=== PATIENT | male | born 1960 | race Caucasian/White ===

== ENCOUNTER 2016-05-29 03:01 | Emergency (ER) | payer OTHER ==
[~2016-05-29] VITALS: Ht 175.3 cm; Wt 88.6 kg
[~2016-05-29 03:01] MED LIST: AMLO-512 PO; CIPR-278 PO; TAMS0.4C32 PO
[2016-05-29 04:05] LABS: ADD UA MICROSCOPIC YES; APPEARANCE,URINE CLEAR (CLEAR); GLUCOSE, URINE (UA) NEGATIVE (NEGATIVE); KETONES,URINE NEGATIVE (NEGATIVE); LEUKOCYTE ESTERASE ,URINE MODERATE (NEGATIVE); OCCULT BLOOD,URINE LARGE (NEGATIVE); PH,URINE 5.5 (5.0-8.0); PROTEIN,URINE NEGATIVE (NEGATIVE)
[2016-05-29 04:16] LABS: SQUAMOUS EPITHELIAL CELL,UR Few /LPF (None Seen)
[2016-05-29 04:28] VITALS: BP 155/89
== END 2016-05-29 05:04 | disposition home or self-care (01) ==
LOC: EMS 03:03
DX: T83.098A Other mechanical complication of other urinary catheter, initial encounter (principal); N40.0 Benign prostatic hyperplasia without lower urinary tract symptoms; I10 Essential (primary) hypertension; J44.9 Chronic obstructive pulmonary disease, unspecified; F12.90 Cannabis use, unspecified, uncomplicated; F15.90 Other stimulant use, unspecified, uncomplicated; F17.210 Nicotine dependence, cigarettes, uncomplicated
CPT/HCPCS: 51702; 87086; 99284

== ENCOUNTER 2016-06-03 09:26 | Emergency (ER) | payer OTHER ==
[~2016-06-03] VITALS: Ht 175.3 cm; Wt 92.0 kg
[2016-06-03] MEDS ORDERED: IPRA4AER IH (09:30)
[2016-06-03 09:32] VITALS: BP 181/136
[2016-06-03] MEDS ORDERED: ALBUTEROL SULFATE 2.5 MG/0.5 ML NEB SOLUTION NEB ONE (10:30)
[2016-06-03] MEDS ORDERED: ALBUTEROL SULFATE HFA 90 MCG/PUFF 8 GM INHALER IH ONE (10:30)
[2016-06-03] MEDS ORDERED: IPRATROPIUM BROMIDE 0.5 MG/2.5 ML NEB SOLUTION NEB ONE (10:30)
== END 2016-06-03 11:15 | disposition home or self-care (01) ==
LOC: EMS 09:28
DX: J44.1 Chronic obstructive pulmonary disease with (acute) exacerbation (principal); J45.901 Unspecified asthma with (acute) exacerbation; I10 Essential (primary) hypertension; F17.210 Nicotine dependence, cigarettes, uncomplicated; F12.90 Cannabis use, unspecified, uncomplicated; F19.90 Other psychoactive substance use, unspecified, uncomplicated
CPT/HCPCS: 94640; 99284; 99406; J7613; 99283; J3535

== ENCOUNTER 2016-07-04 12:12 | Emergency (ER) | payer OTHER ==
[~2016-07-04] VITALS: Ht 175.3 cm; Wt 85.0 kg
[~2016-07-04 12:12] MED LIST changes: -CIPR-278 PO; +IPRA4AER IH
[2016-07-04] MEDS ORDERED: ACET-2247 PO (12:36)
[2016-07-04] MEDS ORDERED: HYDROCODONE/ACETAMINOPHEN 5-325 MG TABLET PO ONE (13:00)
[2016-07-04 14:03] LABS: APPEARANCE,URINE CLEAR (CLEAR); GLUCOSE, URINE (UA) NEGATIVE (NEGATIVE); KETONES,URINE NEGATIVE (NEGATIVE); LEUKOCYTE ESTERASE ,URINE SMALL (NEGATIVE); OCCULT BLOOD,URINE TRACE (NEGATIVE); PH,URINE 6.5 (5.0-8.0); PROTEIN,URINE NEGATIVE (NEGATIVE)
[2016-07-04 14:15] LABS: RBC,URINE 0-2 /HPF (0-2)
[2016-07-04 14:18] VITALS: BP 156/93
== END 2016-07-04 14:37 | disposition home or self-care (01) ==
LOC: EMS 12:13
DX: K40.90 Unilateral inguinal hernia, without obstruction or gangrene, not specified as recurrent (principal); I10 Essential (primary) hypertension; J44.9 Chronic obstructive pulmonary disease, unspecified; F17.210 Nicotine dependence, cigarettes, uncomplicated; F12.90 Cannabis use, unspecified, uncomplicated; F15.90 Other stimulant use, unspecified, uncomplicated
CPT/HCPCS: 99283

== ENCOUNTER 2016-09-01 07:42 | Emergency (ER) | payer OTHER ==
[~2016-09-01] VITALS: Ht 167.6 cm; Wt 90.0 kg
[~2016-09-01 07:42] MED LIST changes: +ACET-2247 PO
[2016-09-01] MEDS ORDERED: IPRATROPIUM BROMIDE 0.5 MG/2.5 ML NEB SOLUTION NEB ONE ×2 (07:45→08:15)
[2016-09-01] MEDS ORDERED: ALBUTEROL SULFATE 2.5 MG/0.5 ML NEB SOLUTION NEB ONE (07:45)
[2016-09-01] MEDS ORDERED: 0.9% SODIUM CHLORIDE 5 ML NEB SOLUTION NEB ONE ×2 (08:01→08:04)
[2016-09-01] MEDS ORDERED: ALBUTEROL SULFATE 5 MG/ML 20 ML NEB SOLN [BULK] NEB ONE (08:15)
[2016-09-01] MEDS ORDERED: PredniSONE 20 MG TABLET PO ONE (08:15)
[2016-09-01] MEDS ORDERED: ALBUTEROL SULFATE HFA 90 MCG/PUFF 8 GM INHALER IH ONE (08:45)
[2016-09-01 09:21] VITALS: BP 156/100
[2016-09-01] MEDS ORDERED: BECLOMETHASONE DIPR 80 MCG/PUFF 8.7 GM INHALER IH ONE (09:30)
== END 2016-09-01 11:26 | disposition home or self-care (01) ==
LOC: EMS 07:45
DX: J44.9 Chronic obstructive pulmonary disease, unspecified (principal); I10 Essential (primary) hypertension; F12.90 Cannabis use, unspecified, uncomplicated; F15.90 Other stimulant use, unspecified, uncomplicated; F17.210 Nicotine dependence, cigarettes, uncomplicated
CPT/HCPCS: 94644; 99285; J7512; J7611; J3535

== ENCOUNTER 2016-10-18 11:50 | Emergency (ER) | payer OTHER ==
[~2016-10-18] VITALS: Ht 175.3 cm; Wt 88.6 kg
[2016-10-18 12:44] LABS: APPEARANCE,URINE TURBID (CLEAR); GLUCOSE, URINE (UA) NEGATIVE (NEGATIVE); KETONES,URINE NEGATIVE (NEGATIVE); LEUKOCYTE ESTERASE ,URINE LARGE (NEGATIVE); OCCULT BLOOD,URINE LARGE (NEGATIVE); PH,URINE 8.5 (5.0-8.0); PROTEIN,URINE POS 1+ (NEGATIVE)
[2016-10-18 12:45] LABS: ADD UA MICROSCOPIC YES
[2016-10-18 12:49] LABS: RBC,URINE 26-50 /HPF (0-2)
[2016-10-18 12:50] LABS: AMORPHOUS SEDIMENT,UR Few /LPF (None Seen); SQUAMOUS EPITHELIAL CELL,UR Rare /LPF (None Seen); WBC,URINE 26-50 /HPF (0-5)
[2016-10-18] MEDS ORDERED: CefTRIAXone SODIUM 1 GM/VIAL IM ONE (13:00)
[2016-10-18] MEDS ORDERED: LIDOCAINE HCL/PF 1% 2 ML VIAL IM ONE (13:00)
[2016-10-18 13:30] VITALS: BP 134/91
== END 2016-10-18 13:35 | disposition home or self-care (01) ==
LOC: EMS 11:52
DX: R33.9 Retention of urine, unspecified (principal); N39.0 Urinary tract infection, site not specified; I10 Essential (primary) hypertension; J44.9 Chronic obstructive pulmonary disease, unspecified; F12.90 Cannabis use, unspecified, uncomplicated; F15.90 Other stimulant use, unspecified, uncomplicated; F17.210 Nicotine dependence, cigarettes, uncomplicated
CPT/HCPCS: 51702; 81001; 87077; 87086; 87186; 96372; 99284; 99406; J0696; J3490

== ENCOUNTER 2016-11-02 09:01 | Emergency (ER) | payer OTHER ==
[~2016-11-02] VITALS: Ht 175.3 cm; Wt 88.6 kg
[2016-11-02] MEDS ORDERED: ALBUTEROL SULFATE HFA 90 MCG/PUFF 8 GM INHALER IH ONE ×2 (09:15→13:00)
[2016-11-02 12:54] VITALS: BP 148/78
== END 2016-11-02 12:56 | disposition home or self-care (01) ==
LOC: EMS 09:03
DX: J45.909 Unspecified asthma, uncomplicated (principal); F17.210 Nicotine dependence, cigarettes, uncomplicated; J44.9 Chronic obstructive pulmonary disease, unspecified; I10 Essential (primary) hypertension; F12.90 Cannabis use, unspecified, uncomplicated; F19.90 Other psychoactive substance use, unspecified, uncomplicated
CPT/HCPCS: 94640; 99284; 99406; J3535

== ENCOUNTER 2016-11-24 16:09 | Emergency (ER) | payer OTHER ==
[~2016-11-24] VITALS: Ht 175.3 cm; Wt 88.6 kg
[2016-11-24] MEDS ORDERED: ALBUTEROL SULFATE 2.5 MG/0.5 ML NEB SOLUTION NEB ONE (16:30)
[2016-11-24] MEDS ORDERED: IPRATROPIUM BROMIDE 0.5 MG/2.5 ML NEB SOLUTION NEB ONE (16:30)
[2016-11-24 17:56] VITALS: BP 142/90
== END 2016-11-24 17:58 | disposition home or self-care (01) ==
LOC: EMS 16:12
DX: J44.9 Chronic obstructive pulmonary disease, unspecified (principal); I10 Essential (primary) hypertension; F12.90 Cannabis use, unspecified, uncomplicated; F15.90 Other stimulant use, unspecified, uncomplicated; F17.210 Nicotine dependence, cigarettes, uncomplicated; Z76.0 Encounter for issue of repeat prescription
CPT/HCPCS: 71010; 94640; 99283; J7613

== ENCOUNTER 2017-01-08 11:34 | Emergency (ER) | payer OTHER ==
[~2017-01-08] VITALS: Ht 175.3 cm; Wt 88.6 kg
[2017-01-08] MEDS ORDERED: BLOOD PRESSURE PO (11:49)
[2017-01-08] MEDS ORDERED: BPH PO (11:49)
[2017-01-08 13:10] VITALS: BP 144/91
== END 2017-01-08 13:05 | disposition home or self-care (01) ==
LOC: EMS 11:36
DX: T83.011A Breakdown (mechanical) of indwelling urethral catheter, initial encounter (principal); R33.8 Other retention of urine; J44.9 Chronic obstructive pulmonary disease, unspecified; I10 Essential (primary) hypertension; N40.1 Benign prostatic hyperplasia with lower urinary tract symptoms; F12.10 Cannabis abuse, uncomplicated; F15.10 Other stimulant abuse, uncomplicated; F17.210 Nicotine dependence, cigarettes, uncomplicated; Y92.89 Other specified places as the place of occurrence of the external cause
CPT/HCPCS: 51702; 99284

== ENCOUNTER 2017-03-04 07:02 | Emergency (ER) | payer OTHER ==
[~2017-03-04] VITALS: Ht 175.3 cm; Wt 89.0 kg
[~2017-03-04 07:02] MED LIST changes: -AMLO-512 PO; +BLOOD PRESSURE PO; +BPH PO; -TAMS0.4C32 PO
[2017-03-04 07:21] VITALS: BP 140/105
[2017-03-04] MEDS ORDERED: 0.9% SODIUM CHLORIDE 5 ML NEB SOLUTION NEB ONE (07:42)
[2017-03-04] MEDS ORDERED: PredniSONE 20 MG TABLET PO ONE (07:45)
[2017-03-04] MEDS ORDERED: ALBUTEROL SULFATE 5 MG/ML 20 ML NEB SOLN [BULK] NEB ONE (07:45)
[2017-03-04] MEDS ORDERED: IPRATROPIUM BROMIDE 0.5 MG/2.5 ML NEB SOLUTION NEB ONE (07:45)
== END 2017-03-04 08:35 | disposition home or self-care (01) ==
LOC: EMS 07:03
DX: J44.1 Chronic obstructive pulmonary disease with (acute) exacerbation (principal); J45.901 Unspecified asthma with (acute) exacerbation; F17.210 Nicotine dependence, cigarettes, uncomplicated; I10 Essential (primary) hypertension; F12.90 Cannabis use, unspecified, uncomplicated; F19.90 Other psychoactive substance use, unspecified, uncomplicated
CPT/HCPCS: 94640; 99283; 99406; J7512; J7611

== ENCOUNTER 2017-03-28 04:00 | Emergency (ER) | payer OTHER ==
[~2017-03-28] VITALS: Ht 175.3 cm; Wt 89.0 kg
[~2017-03-28 04:00] MED LIST changes: -ACET-2247 PO
[2017-03-28 05:40] LABS: APPEARANCE,URINE CLOUDY (CLEAR); GLUCOSE, URINE (UA) NEGATIVE (NEGATIVE); KETONES,URINE NEGATIVE (NEGATIVE); LEUKOCYTE ESTERASE ,URINE LARGE (NEGATIVE); OCCULT BLOOD,URINE SMALL (NEGATIVE); PH,URINE 7.5 (5.0-8.0); PROTEIN,URINE NEGATIVE (NEGATIVE)
[2017-03-28 05:46] LABS: ADD UA MICROSCOPIC YES
[2017-03-28 05:55] LABS: SQUAMOUS EPITHELIAL CELL,UR Few /LPF (None Seen)
[2017-03-28] MEDS ORDERED: CIPROFLOXACIN HCL 250 MG TABLET PO ONE (06:00)
[2017-03-28 06:19] VITALS: BP 124/75
== END 2017-03-28 06:19 | disposition home or self-care (01) ==
LOC: EMS 04:01
DX: T83.091A Other mechanical complication of indwelling urethral catheter, initial encounter (principal); N39.0 Urinary tract infection, site not specified; N40.1 Benign prostatic hyperplasia with lower urinary tract symptoms; J44.9 Chronic obstructive pulmonary disease, unspecified; I10 Essential (primary) hypertension; F12.90 Cannabis use, unspecified, uncomplicated; F19.90 Other psychoactive substance use, unspecified, uncomplicated; F17.210 Nicotine dependence, cigarettes, uncomplicated
CPT/HCPCS: 51702; 87086; 99284

== ENCOUNTER 2017-04-07 12:04 | Emergency (ER) | payer OTHER ==
[~2017-04-07] VITALS: Ht 175.3 cm; Wt 88.6 kg
[2017-04-07] MEDS ORDERED: IPRATROPIUM BROMIDE 0.5 MG/2.5 ML NEB SOLUTION NEB ONE (13:00)
[2017-04-07] MEDS ORDERED: DEXAMETHASONE SOD PHOS 4 MG/ML 5 ML VIAL IM ONE (13:00)
[2017-04-07] MEDS ORDERED: ALBUTEROL SULFATE 2.5 MG/0.5 ML NEB SOLUTION NEB ONE (13:00)
[2017-04-07 13:49] VITALS: BP 143/89
[2017-04-07] MEDS ORDERED: ALBUTEROL SULFATE HFA 90 MCG/PUFF 8 GM INHALER IH ONE (14:15)
== END 2017-04-07 14:49 | disposition home or self-care (01) ==
LOC: EMS 12:05
DX: J44.1 Chronic obstructive pulmonary disease with (acute) exacerbation (principal); I10 Essential (primary) hypertension; F12.90 Cannabis use, unspecified, uncomplicated; F15.90 Other stimulant use, unspecified, uncomplicated; F17.210 Nicotine dependence, cigarettes, uncomplicated
CPT/HCPCS: 94644; 96372; 99285; J1100; J7613; J3535

== ENCOUNTER 2017-04-26 17:44 | Emergency (ER) | payer OTHER ==
[~2017-04-26] VITALS: Ht 175.3 cm; Wt 90.9 kg
[2017-04-26 17:48] VITALS: BP 155/93
[2017-04-26] MEDS ORDERED: ALBUTEROL SULFATE 2.5 MG/0.5 ML NEB SOLUTION NEB ONE (18:30)
[2017-04-26] MEDS ORDERED: IPRATROPIUM BROMIDE 0.5 MG/2.5 ML NEB SOLUTION NEB ONE (18:30)
[2017-04-26] MEDS ORDERED: ALBUTEROL SULFATE HFA 90 MCG/PUFF 8 GM INHALER IH ONE (18:30)
== END 2017-04-26 19:36 | disposition home or self-care (01) ==
LOC: EMS 17:45
DX: J44.9 Chronic obstructive pulmonary disease, unspecified (principal); I10 Essential (primary) hypertension; F17.210 Nicotine dependence, cigarettes, uncomplicated; F12.10 Cannabis abuse, uncomplicated; F15.10 Other stimulant abuse, uncomplicated
CPT/HCPCS: 94640; 99283; J3535

== ENCOUNTER 2017-05-06 11:09 | Emergency (ER) | payer OTHER ==
[~2017-05-06] VITALS: Ht 175.3 cm; Wt 90.9 kg
[2017-05-06 14:47] VITALS: BP 136/107
== END 2017-05-06 15:28 | disposition left against medical advice (07) ==
LOC: EMS 11:10
DX: T83.031A Leakage of indwelling urethral catheter, initial encounter (principal); K41.90 Unilateral femoral hernia, without obstruction or gangrene, not specified as recurrent; J44.9 Chronic obstructive pulmonary disease, unspecified; I10 Essential (primary) hypertension; F12.90 Cannabis use, unspecified, uncomplicated; F15.90 Other stimulant use, unspecified, uncomplicated; F17.210 Nicotine dependence, cigarettes, uncomplicated
CPT/HCPCS: 99283

== ENCOUNTER 2017-05-09 13:01 | Emergency (ER) | payer OTHER ==
[~2017-05-09] VITALS: Ht 175.3 cm; Wt 90.9 kg
[2017-05-09 13:15] VITALS: BP 148/122
[2017-05-09 14:54] LABS: BASOPHILS % (AUTO) 0.5 % (0.0-2.0); EOSINOPHILS % (AUTO) 4.3 % (1.0-6.0); HEMATOCRIT 46.1 % (41-53); HEMOGLOBIN 15.5 g/dL (13.5-17.5); LYMPHOCYTES % (AUTO) 20.4 % (22.0-44.0); MEAN CORPUSCULAR HEMOGLOBIN 29.7 pg (26.0-34.0); MEAN CORPUSCULAR HGB CONC 33.7 G/dL (31.0-37.0); MEAN CORPUSCULAR VOLUME 88 fL (80-100); MONOCYTES # (AUTO) 0.8 K/uL (0.1-1.0); MONOCYTES % (AUTO) 7.8 % (2.0-9.0); NEUTROPHILS # (AUTO) 6.7 K/uL (1.8-7.7); PLATELET COUNT (AUTO) 364 K/uL (150-450); RED BLOOD CELL COUNT(AUTO) 5.22 MIL/uL (4.50-5.90); RED CELL DISTRIBUTION WIDTH 15.8 % (11.5-14.5)
[2017-05-09 15:11] LABS: CALCIUM, TOTAL 8.6 mg/dL (8.8-10.5); CREATININE 1.63 mg/dL (0.60-1.30); POTASSIUM 4.5 mmol/L (3.5-5.1)
[2017-05-09] MEDS ORDERED: IPRATROPIUM BROMIDE 0.5 MG/2.5 ML NEB SOLUTION NEB ONE (15:15)
[2017-05-09] MEDS ORDERED: ALBUTEROL SULFATE 2.5 MG/0.5 ML NEB SOLUTION NEB ONE (15:15)
[2017-05-09] MEDS ORDERED: ALBUTEROL SULFATE HFA 90 MCG/PUFF 8 GM INHALER IH ONE (15:15)
[2017-05-09 15:17] LABS: ALBUMIN 3.9 g/dL (3.4-5.0); BILIRUBIN,TOTAL 0.4 mg/dL (0.1-1.0)
== END 2017-05-09 16:09 | disposition left against medical advice (07) ==
LOC: EMS 13:02
DX: R06.02 Shortness of breath (principal); Z53.21 Procedure and treatment not carried out due to patient leaving prior to being seen by health care provider
CPT/HCPCS: 36415; 71045; 80053; 84484; 85025; 93005; J7613; J3535

== ENCOUNTER 2017-06-15 05:08 | Emergency (ER) | payer OTHER ==
[~2017-06-15] VITALS: Ht 175.3 cm; Wt 86.4 kg
[2017-06-15 06:38] VITALS: BP 127/81
== END 2017-06-15 06:52 | disposition home or self-care (01) ==
LOC: EMS 05:09
DX: N39.0 Urinary tract infection, site not specified (principal); J44.9 Chronic obstructive pulmonary disease, unspecified; I10 Essential (primary) hypertension; F17.210 Nicotine dependence, cigarettes, uncomplicated; F12.90 Cannabis use, unspecified, uncomplicated; F19.90 Other psychoactive substance use, unspecified, uncomplicated
CPT/HCPCS: 51705; 99284

== ENCOUNTER 2017-08-17 11:49 | Emergency (ER) | payer OTHER ==
[~2017-08-17] VITALS: Ht 175.3 cm; Wt 95.5 kg
[2017-08-17 12:11] VITALS: BP 158/78
== END 2017-08-17 12:20 | disposition left against medical advice (07) ==
LOC: EMS 11:50
DX: R07.9 Chest pain, unspecified (principal); Z53.21 Procedure and treatment not carried out due to patient leaving prior to being seen by health care provider
CPT/HCPCS: 93005

== ENCOUNTER 2017-09-25 22:43 | Emergency (ER) | payer OTHER ==
[~2017-09-25] VITALS: Ht 175.3 cm; Wt 90.9 kg
[2017-09-25 23:22] LABS: APPEARANCE,URINE CLEAR (CLEAR); BILIRUBIN,URINE NEGATIVE (NEGATIVE); GLUCOSE, URINE (UA) NEGATIVE (NEGATIVE); KETONES,URINE NEGATIVE (NEGATIVE); LEUKOCYTE ESTERASE ,URINE LARGE (NEGATIVE); NITRATE,URINE POSITIVE (NEGATIVE); OCCULT BLOOD,URINE LARGE (NEGATIVE); PH,URINE 6.5 (5.0-8.0); PROTEIN,URINE NEGATIVE (NEGATIVE); UROBILINOGEN,URINE 0.2 mg/dL (<=1.0)
[2017-09-25 23:44] LABS: RBC,URINE 26-50 /HPF (0-2)
[2017-09-25 23:45] LABS: AMORPHOUS SEDIMENT,UR Few /LPF (None Seen); BACTERIA,URINE Moderate /HPF (None Seen); SQUAMOUS EPITHELIAL CELL,UR Rare /LPF (None Seen)
[2017-09-26 01:07] VITALS: BP 132/72
== END 2017-09-26 01:08 | disposition home or self-care (01) ==
LOC: EMS 22:44
DX: T83.011A Breakdown (mechanical) of indwelling urethral catheter, initial encounter (principal); N39.0 Urinary tract infection, site not specified; R33.9 Retention of urine, unspecified; J44.9 Chronic obstructive pulmonary disease, unspecified; I10 Essential (primary) hypertension; F17.210 Nicotine dependence, cigarettes, uncomplicated
CPT/HCPCS: 51702; 87086; 99284; 99406

== ENCOUNTER 2018-10-18 09:38 | Emergency (ER) | payer OTHER ==
[~2018-10-18] VITALS: Ht 175.3 cm; Wt 119.1 kg
[2018-10-18] MEDS ORDERED: KETOROLAC TROMETHAMINE 60 MG/2 ML VIAL IM ONE (10:45)
[2018-10-18 12:34] VITALS: BP 148/91
== END 2018-10-18 12:37 | disposition home or self-care (01) ==
LOC: EMS 09:41
DX: S83.92XA Sprain of unspecified site of left knee, initial encounter (principal); J44.9 Chronic obstructive pulmonary disease, unspecified; I10 Essential (primary) hypertension; F17.210 Nicotine dependence, cigarettes, uncomplicated; F12.90 Cannabis use, unspecified, uncomplicated; F19.90 Other psychoactive substance use, unspecified, uncomplicated
CPT/HCPCS: 73562; 96372; 99283; J1885

== ENCOUNTER 2019-09-21 00:23 | Emergency (ER) | payer OTHER ==
[~2019-09-21] VITALS: Ht 175.3 cm; Wt 122.7 kg
[2019-09-21] MEDS ORDERED: ACETAMINOPHEN 500 MG TABLET PO ONE (01:15)
[2019-09-21] MEDS ORDERED: CLINDAMYCIN HCL 150 MG CAPSULE PO ONE (01:15)
[2019-09-21 01:23] VITALS: BP 148/69
== END 2019-09-21 01:32 | disposition home or self-care (01) ==
LOC: EMS 00:23
DX: K02.9 Dental caries, unspecified (principal); F17.210 Nicotine dependence, cigarettes, uncomplicated; F12.90 Cannabis use, unspecified, uncomplicated; F15.90 Other stimulant use, unspecified, uncomplicated; J44.9 Chronic obstructive pulmonary disease, unspecified

== ENCOUNTER 2021-02-20 10:22 | Emergency (ER) | payer OTHER ==
[~2021-02-20] VITALS: Ht 175.3 cm; Wt 109.1 kg
[~2021-02-20 10:22] MED LIST changes: -BLOOD PRESSURE PO; -BPH PO
[2021-02-20] MEDS ORDERED: IPRATROPIUM BROMIDE 0.5 MG/2.5 ML NEB SOLUTION NEB ONE ×2 (11:00→12:15)
[2021-02-20] MEDS ORDERED: MethylPREDNISolone SOD SUCC 125 MG/2 ML VIAL IVP ONE (11:00)
[2021-02-20] MEDS ORDERED: ALBUTEROL SULFATE 2.5 MG/0.5 ML NEB SOLUTION NEB ONE ×2 (11:00→12:15)
[2021-02-20 11:12] LABS: BASOPHILS % (AUTO) 0.9 % (0.0-2.0); HEMATOCRIT 46.9 % (41-53); HEMOGLOBIN 15.5 g/dL (13.5-17.5); LYMPHOCYTES # (AUTO) 1.5 K/uL (1.0-4.8); LYMPHOCYTES % (AUTO) 13.8 % (22.0-44.0); MEAN CORPUSCULAR HEMOGLOBIN 28.3 pg (26.0-34.0); MEAN CORPUSCULAR HGB CONC 33.1 G/dL (31.0-37.0); MEAN CORPUSCULAR VOLUME 86 fL (80-100); MONOCYTES # (AUTO) 1.1 K/uL (0.1-1.0); MONOCYTES % (AUTO) 9.7 % (2.0-9.0); NEUTROPHILS # (AUTO) 8.1 K/uL (1.8-7.7); NEUTROPHILS % (AUTO) 72.6 % (40.0-70.0); PLATELET COUNT (AUTO) 355 K/uL (150-450); RED BLOOD CELL COUNT(AUTO) 5.48 MIL/uL (4.50-5.90)
[2021-02-20 11:24] LABS: ANION GAP 12 mmol/L (8-16); CALCIUM, TOTAL 9.8 mg/dL (8.8-10.5); CARBON DIOXIDE 30 mmol/L (22-29); CHLORIDE 95 mmol/L (98-107); GLOMERULAR FILTR. RATE CALC 36 mL/min (>60); GLUCOSE,RANDOM 133 mg/dL (70-110); SODIUM SERUM 137 mmol/L (136-145); UREA NITROGEN, BLOOD 33 mg/dL (7-18)
[2021-02-20 11:36] LABS: ALANINE AMINOTRANSFERASE 36 U/L (12-78); ALBUMIN 3.8 g/dL (3.4-5.0); ALKALINE PHOSPHATASE 84 U/L (46-116); ASPARTATE AMINOTRANSFERASE 33 U/L (15-37); BILIRUBIN,TOTAL 0.4 mg/dL (0.1-1.0); TOTAL PROTEIN, SERUM 8.4 g/dL (6.4-8.2)
[2021-02-20] MEDS ORDERED: POTASSIUM CHLORIDE 10% 40 MEQ/30 ML LIQUID UDCUP PO ONE (12:00)
[2021-02-20] MEDS ORDERED: ACETAMINOPHEN 500 MG TABLET PO ONE (12:15)
[2021-02-20] MEDS ORDERED: DOXYCYCLINE HYCLATE 100 MG TABLET PO ONE (12:15)
[2021-02-20 12:58] VITALS: BP 139/93
== END 2021-02-20 12:59 | disposition home or self-care (01) ==
LOC: EMS 10:23
DX: J18.9 Pneumonia, unspecified organism (principal); E87.6 Hypokalemia; J44.1 Chronic obstructive pulmonary disease with (acute) exacerbation; R07.89 Other chest pain; F12.90 Cannabis use, unspecified, uncomplicated; F15.90 Other stimulant use, unspecified, uncomplicated; N40.0 Benign prostatic hyperplasia without lower urinary tract symptoms; Z59.00 Homelessness unspecified
CPT/HCPCS: 36415; 71045; 80053; 84484; 85025; 93005; 94640; 99285; G0480; J2930; J7613

== ENCOUNTER 2021-03-05 10:25 | Emergency (ER) | payer OTHER ==
[~2021-03-05] VITALS: Ht 175.3 cm; Wt 109.1 kg
[2021-03-05 10:37] VITALS: BP 128/89
[2021-03-05] MEDS: CYCLOBENZAPRINE HCL 10 MG TABLET PO ONE (11:33)
[2021-03-05] MEDS: HYDROCODONE/ACETAMINOPHEN 5-325 MG TABLET PO ONE (11:34)
== END 2021-03-05 12:33 | disposition home or self-care (01) ==
LOC: EMS 10:35
DX: S46.911A Strain of unspecified muscle, fascia and tendon at shoulder and upper arm level, right arm, initial encounter (principal); X58.XXXA Exposure to other specified factors, initial encounter; Y93.84 Activity, sleeping; Y92.810 Car as the place of occurrence of the external cause; Y99.8 Other external cause status; J44.9 Chronic obstructive pulmonary disease, unspecified; I10 Essential (primary) hypertension; N40.0 Benign prostatic hyperplasia without lower urinary tract symptoms; Z59.00 Homelessness unspecified
CPT/HCPCS: 99283

== ENCOUNTER 2021-03-14 10:38 | Emergency (ER) | payer OTHER ==
[~2021-03-14] VITALS: Ht 175.3 cm; Wt 113.6 kg
[2021-03-14 10:57] VITALS: BP 133/96
[2021-03-14] MEDS: CYCLOBENZAPRINE HCL 10 MG TABLET PO ONE ×2 (11:06→11:16)
[2021-03-14] MEDS: HYDROCODONE/ACETAMINOPHEN 5-325 MG TABLET PO ONE ×2 (11:07→11:16)
== END 2021-03-14 11:21 | disposition home or self-care (01) ==
LOC: EMS 10:38
DX: M62.838 Other muscle spasm (principal); M54.2 Cervicalgia; M25.511 Pain in right shoulder; R20.0 Anesthesia of skin; J44.9 Chronic obstructive pulmonary disease, unspecified; I10 Essential (primary) hypertension; F12.90 Cannabis use, unspecified, uncomplicated
CPT/HCPCS: 99283

== ENCOUNTER 2021-03-26 14:58 | Emergency (ER) | payer OTHER ==
[~2021-03-26] VITALS: Ht 177.8 cm; Wt 113.6 kg
[2021-03-26 16:54] LABS: COVID AG,FIA SOURCE NASAL SWAB
[2021-03-26] MEDS ORDERED: IPRATROPIUM BROMIDE 0.5 MG/2.5 ML NEB SOLUTION NEB ONE (17:30)
[2021-03-26] MEDS ORDERED: PredniSONE 20 MG TABLET PO ONE (17:30)
[2021-03-26] MEDS ORDERED: ALBUTEROL SULFATE 5 MG/ML 20 ML NEB SOLN [BULK] NEB ONE (17:30)
[2021-03-26 18:47] VITALS: BP 132/78
== END 2021-03-26 19:00 | disposition home or self-care (01) ==
LOC: EMS 15:06
DX: J44.1 Chronic obstructive pulmonary disease with (acute) exacerbation (principal); I10 Essential (primary) hypertension; Z79.899 Other long term (current) drug therapy; F12.90 Cannabis use, unspecified, uncomplicated; Z20.822 Contact with and (suspected) exposure to COVID-19
CPT/HCPCS: 71045; 87426; 93005; 94640; 99285; J7512

== ENCOUNTER 2022-07-07 10:17 | Emergency (ER) | payer OTHER ==
[~2022-07-07] VITALS: Ht 175.3 cm; Wt 125.0 kg
[2022-07-07 12:00] VITALS: BP 144/78
== END 2022-07-07 13:45 | disposition left against medical advice (07) ==
LOC: EMS 10:21
DX: Z46.6 Encounter for fitting and adjustment of urinary device (principal); J44.9 Chronic obstructive pulmonary disease, unspecified; I10 Essential (primary) hypertension; F12.90 Cannabis use, unspecified, uncomplicated; N40.0 Benign prostatic hyperplasia without lower urinary tract symptoms; Z98.890 Other specified postprocedural states
CPT/HCPCS: 99281; Z7502

== ENCOUNTER 2022-08-09 10:13 | Emergency (ER) | payer OTHER ==
[~2022-08-09] VITALS: Ht 175.3 cm; Wt 125.0 kg
[2022-08-09 11:31] LABS: BASOPHILS % (AUTO) 0.6 % (0.0-2.0); EOSINOPHILS % (AUTO) 1.3 % (1.0-6.0); HEMATOCRIT 43.6 % (41-53); HEMOGLOBIN 14.4 g/dL (13.5-17.5); LYMPHOCYTES # (AUTO) 1.2 K/uL (1.0-4.8); LYMPHOCYTES % (AUTO) 15.6 % (22.0-44.0); MEAN CORPUSCULAR HEMOGLOBIN 28.2 pg (26.0-34.0); MEAN CORPUSCULAR VOLUME 86 fL (80-100); MONOCYTES # (AUTO) 1.2 K/uL (0.1-1.0); MONOCYTES % (AUTO) 15.8 % (2.0-9.0); NEUTROPHILS # (AUTO) 5.1 K/uL (1.8-7.7); NEUTROPHILS % (AUTO) 66.7 % (40.0-70.0); PLATELET COUNT (AUTO) 269 K/uL (150-450); RED CELL DISTRIBUTION WIDTH 16.7 % (11.5-14.5)
[2022-08-09 11:39] LABS: CALCIUM, TOTAL 9.4 mg/dL (8.8-10.5); CREATININE 1.32 mg/dL (0.60-1.30); POTASSIUM 3.9 mmol/L (3.5-5.1)
[2022-08-09 11:45] LABS: ALBUMIN 3.3 g/dL (3.4-5.0); BILIRUBIN,TOTAL 0.3 mg/dL (0.1-1.0); TOTAL PROTEIN, SERUM 7.6 g/dL (6.4-8.2)
[2022-08-09] MEDS ORDERED: IPRATROPIUM BROMIDE 0.5 MG/2.5 ML NEB SOLUTION NEB ONE (12:00)
[2022-08-09] MEDS ORDERED: ALBUTEROL SULFATE 2.5 MG/0.5 ML NEB SOLUTION NEB ONE (12:00)
[2022-08-09 12:20] VITALS: BP 144/97
== END 2022-08-09 12:47 | disposition home or self-care (01) ==
LOC: EMS 10:13
DX: R53.1 Weakness (principal); J44.1 Chronic obstructive pulmonary disease with (acute) exacerbation; E66.9 Obesity, unspecified; F10.10 Alcohol abuse, uncomplicated; I10 Essential (primary) hypertension; Z87.891 Personal history of nicotine dependence
CPT/HCPCS: 71045; 80053; 83880; 84484; 85025; 93005; 94640; 99285; J7613

== ENCOUNTER 2023-01-11 21:14 | Emergency (ER) | payer OTHER ==
[~2023-01-11] VITALS: Ht 175.3 cm; Wt 127.3 kg
[~2023-01-11 21:14] MED LIST changes: +ALBU18HF12 IH; -IPRA4AER IH; +NEBU-305 PO; +PRED-554 PO
[2023-01-11 21:53] LABS: COVID AG,FIA SOURCE NASAL SWAB
[2023-01-11 21:54] LABS: BASOPHILS % (AUTO) 0.9 % (0.0-2.0); EOSINOPHILS % (AUTO) 6.5 % (1.0-6.0); LYMPHOCYTES # (AUTO) 1.5 K/uL (1.0-4.8); LYMPHOCYTES % (AUTO) 15.2 % (22.0-44.0); MEAN CORPUSCULAR HEMOGLOBIN 28.5 pg (26.0-34.0); MEAN CORPUSCULAR HGB CONC 32.5 G/dL (31.0-37.0); MEAN CORPUSCULAR VOLUME 88 fL (80-100); MONOCYTES % (AUTO) 9.9 % (2.0-9.0); NEUTROPHILS # (AUTO) 6.5 K/uL (1.8-7.7); NEUTROPHILS % (AUTO) 67.5 % (40.0-70.0); PLATELET COUNT (AUTO) 262 K/uL (150-450); RED BLOOD CELL COUNT(AUTO) 4.57 MIL/uL (4.50-5.90); RED CELL DISTRIBUTION WIDTH 15.6 % (11.5-14.5); WHITE BLOOD COUNT (AUTO) 9.6 K/uL (4.5-11.0)
[2023-01-11] MEDS ORDERED: MethylPREDNISolone SOD SUCC 125 MG/2 ML VIAL IVP ONE (22:00)
[2023-01-11 22:03] LABS: CALCIUM, TOTAL 9.3 mg/dL (8.8-10.5); CREATININE 1.82 mg/dL (0.60-1.30); POTASSIUM 4.6 mmol/L (3.5-5.1)
[2023-01-11 22:10] LABS: SARS-COV2 (COVID) ANTIGEN,FIA Negative (Negative)
[2023-01-11 22:11] LABS: ALBUMIN 3.3 g/dL (3.4-5.0); BILIRUBIN,TOTAL 0.3 mg/dL (0.1-1.0); TOTAL PROTEIN, SERUM 7.2 g/dL (6.4-8.2); TROPONIN I-HIGH SENSITIVITY 9 ng/L (<76)
[2023-01-11 22:11] LABS: INFLUENZA TYPE A NEGATIVE FOR TYPE A (NEGATIVE); INFLUENZA TYPE B NEGATIVE FOR TYPE B (NEGATIVE)
[2023-01-11 22:43] LABS: APPEARANCE,URINE HAZY (CLEAR); BILIRUBIN,URINE NEGATIVE (NEGATIVE); COLOR,URINE YELLOW (YELLOW); GLUCOSE, URINE (UA) NEGATIVE (NEGATIVE); KETONES,URINE NEGATIVE (NEGATIVE); LEUKOCYTE ESTERASE ,URINE LARGE (NEGATIVE); NITRATE,URINE POSITIVE (NEGATIVE); OCCULT BLOOD,URINE TRACE (NEGATIVE); PH,URINE 5.5 (5.0-8.0); PH,URINE DRUG SCREEN 5.5 (5.0-8.0); PROTEIN,URINE TRACE mg/dL (NEGATIVE); SPECIFIC GRAVITIY, URINE 1.014 (1.003-1.030); UROBILINOGEN,URINE <=1.0 mg/dL (<=1.0)
[2023-01-11 22:50] LABS: ALCOHOL, URINE DRUG SCREEN NEGATIVE (NEGATIVE); AMPHET/METH SCREEN,URINE NEGATIVE (NEGATIVE); BARBITURATE SCREEN, URINE NEGATIVE (NEGATIVE); BENZODIAZEPINES SCREEN,URINE NEGATIVE (NEGATIVE); CANNABINOID SCREEN,URINE POSITIVE (NEGATIVE); COCAINE SCREEN,URINE NEGATIVE (NEGATIVE); METHADONE SCREEN, URINE NEGATIVE (NEGATIVE); OPIATE SCREEN,URINE NEGATIVE (NEGATIVE); PHENCYCLIDINE SCREEN,URINE NEGATIVE (NEGATIVE)
[2023-01-11 22:56] LABS: BACTERIA,URINE Many /HPF (None Seen); SQUAMOUS EPITHELIAL CELL,UR Rare /LPF (None Seen); WBC,URINE 51-100 /HPF (0-5)
[2023-01-11] MEDS ORDERED: MORPHINE SULFATE 10 MG/ML VIAL IVP ONE (23:15)
[2023-01-11] MEDS ORDERED: CefTRIAXone 1 GM/DEXTROSE 50 ML IV ONE (23:15)
[2023-01-11] MEDS ORDERED: ONDANSETRON HCL 4 MG/2 ML VIAL IVP ONE (23:15)
[2023-01-11 23:24] VITALS: TEMP 98.4
[2023-01-12 00:05] VITALS: BP 153/83; PULSE 98; RESP 22
[2023-01-12] MEDS ORDERED: CEPH-558 PO (00:43)
== END 2023-01-12 01:02 | disposition home or self-care (01) ==
LOC: EMS 21:15
DX: N39.0 Urinary tract infection, site not specified (principal); J44.9 Chronic obstructive pulmonary disease, unspecified; F12.90 Cannabis use, unspecified, uncomplicated; Z79.899 Other long term (current) drug therapy; Z87.891 Personal history of nicotine dependence; Z20.822 Contact with and (suspected) exposure to COVID-19
CPT/HCPCS: 99285; 96365; 96375; 71045; 87426; 80053; 81001; 82550; 83880; 84484; 85025; 87804; 36415; 87086; 87186; 76870; 93005; 80307 ×2; J0696; J2270; J2930; J2405

== ENCOUNTER 2023-12-17 08:59 | Emergency (ER) | payer MEDICARE, OTHER ==
[~2023-12-17] VITALS: Ht 175.3 cm; Wt 121.5 kg
[~2023-12-17 08:59] MED LIST changes: +CEPH-558 PO
[2023-12-17 09:14] VITALS: TEMP 98
[2023-12-17 10:15] LABS: BASOPHILS % (AUTO) 0.6 % (0.0-2.0); EOSINOPHILS % (AUTO) 2.3 % (1.0-6.0); HEMATOCRIT 41.4 % (41-53); HEMOGLOBIN 13.4 g/dL (13.5-17.5); LYMPHOCYTES # (AUTO) 1.1 K/uL (1.0-4.8); MEAN CORPUSCULAR HEMOGLOBIN 28.9 pg (26.0-34.0); MEAN CORPUSCULAR HGB CONC 32.4 G/dL (31.0-37.0); MEAN CORPUSCULAR VOLUME 89 fL (80-100); MONOCYTES # (AUTO) 0.9 K/uL (0.1-1.0); MONOCYTES % (AUTO) 8.2 % (2.0-9.0); NEUTROPHILS # (AUTO) 8.1 K/uL (1.8-7.7); NEUTROPHILS % (AUTO) 77.9 % (40.0-70.0); PLATELET COUNT (AUTO) 277 K/uL (150-450); RED BLOOD CELL COUNT(AUTO) 4.64 MIL/uL (4.50-5.90); RED CELL DISTRIBUTION WIDTH 14.9 % (11.5-14.5); WHITE BLOOD COUNT (AUTO) 10.4 K/uL (4.5-11.0)
[2023-12-17 10:28] LABS: INR 0.9 (0.9-1.1); PROTHROMBIN TIME 9.8 SEC (9.4-11.6)
[2023-12-17 10:37] LABS: TROPONIN I-HIGH SENSITIVITY 22 ng/L (<76)
[2023-12-17 10:55] LABS: CALCIUM, TOTAL 8.8 mg/dL (8.8-10.5); CREATININE 1.29 mg/dL (0.60-1.30); POTASSIUM 3.4 mmol/L (3.5-5.1)
[2023-12-17 11:19] LABS: ALBUMIN 2.7 g/dL (3.4-5.0); BILIRUBIN,TOTAL 0.3 mg/dL (0.1-1.0); TOTAL PROTEIN, SERUM 6.8 g/dL (6.4-8.2)
[2023-12-17 13:16] LABS: APPEARANCE,URINE CLEAR (CLEAR); BILIRUBIN,URINE NEGATIVE (NEGATIVE); COLOR,URINE LIGHT YELLOW (YELLOW); GLUCOSE, URINE (UA) NEGATIVE (NEGATIVE); KETONES,URINE NEGATIVE (NEGATIVE); LEUKOCYTE ESTERASE ,URINE NEGATIVE (NEGATIVE); NITRATE,URINE NEGATIVE (NEGATIVE); OCCULT BLOOD,URINE NEGATIVE (NEGATIVE); PH,URINE 6.5 (5.0-8.0); PROTEIN,URINE 30-70 mg/dL (NEGATIVE); SPECIFIC GRAVITIY, URINE 1.012 (1.003-1.030); UROBILINOGEN,URINE <=1.0 mg/dL (<=1.0)
[2023-12-17 17:11] VITALS: BP 151/82; PULSE 80; RESP 16; O2SAT 95
[2023-12-17 18:07] LABS: COVID AG,FIA SOURCE NASAL SWAB
[2023-12-17 18:32] LABS: SARS-COV2 (COVID) ANTIGEN,FIA Negative (Negative)
== END 2023-12-17 19:40 | disposition admitted as inpatient to this hospital (09) ==
LOC: EMS 08:59 → CANBEDREQ 18:56 → EMS 19:40
DX: J44.1 Chronic obstructive pulmonary disease with (acute) exacerbation (principal); R53.1 Weakness; I10 Essential (primary) hypertension; F12.90 Cannabis use, unspecified, uncomplicated; Z87.891 Personal history of nicotine dependence; Z98.890 Other specified postprocedural states; Z88.0 Allergy status to penicillin; Z20.822 Contact with and (suspected) exposure to COVID-19
CPT/HCPCS: 71045; 80053; 81003; 82550; 83880; 84484; 85025; 85610; 85730; 93005; 99285; 36415-L1; 36415-TC